=== PATIENT | male | born 1950 | race Caucasian/White ===

== ENCOUNTER 2017-10-06 02:23 | Emergency (ER) | payer OTHER ==
[~2017-10-06] VITALS: Ht 182.9 cm; Wt 102.2 kg
[2017-10-06 02:34] VITALS: BP 152/86; PULSE 78; RESP 20; TEMP 97.7; O2SAT 96
[2017-10-06 04:35] VITALS: BP 154/96; PULSE 75; RESP 18; O2SAT 97
[2017-10-06] MEDS ORDERED: REST30CA PO (05:22)
--- NOTE | 2017-10-06 05:22 | PD ---
HPI Chief Complaint: Respiratory Symptoms Time Seen by Provider: 05:10 Travel History International Travel<30 days: No Contact w/Intl Traveler<30days: No Traveled to known affect area: No History of Present Illness HPI The patient is a 67-year-old male that states for the last 6 months intermittently he has been woken up after he falls asleep. He states he chokes and cannot breathe for a few seconds and then gets anxiety and walks around. He has been on Xanax in the past but does not want to get back on that because she knows that it is addicting. He is followed by the [facility] and would like a sleep study done. This sounds very appropriate. He gave up smoking 7 years ago. [facility] Past Medical History Arthritis: Yes COPD: Yes Patient Takes Glucophage: No Medical other: Yes (Hep-C) Past Surgical History Surgical History: No Previous Surgery Social History Alcohol Use: Yes (2-3 glasses wine) Tobacco Use: No Substance Use: Yes (Occasional marijuana) Allergies-Medications (Allergen,Severity, Reaction): Coded Allergies: No Known Allergies (Unverified , 10/06/17) Review of Systems Except as stated in HPI: all other systems reviewed are Neg Physical Exam Narrative GENERAL: Well-nourished, well-developed patient who appears slightly anxious but is in no apparent distress. SKIN: Focused skin assessment warm/dry. HEAD: Normocephalic. EYES: No scleral icterus. No injection or drainage. NECK: Supple, trachea midline. No JVD or lymphadenopathy. There is no stridor and his voice is normal. CARDIOVASCULAR: Regular rate and rhythm without murmurs, gallops, or rubs. RESPIRATORY: Breath sounds equal bilaterally. No accessory muscle use. Lungs clear to auscultation bilaterally. GASTROINTESTINAL: Abdomen soft, non-tender, nondistended. MUSCULOSKELETAL: No cyanosis, or edema. BACK: Nontender without obvious deformity. No CVA tenderness. ENT: The throat is clear and no obvious tumors are present as far as I can visualize the pharynx. There is no stridor or anywhere along his upper airway. Data Data Last Documented VS Vital Signs Date Time Temp Pulse Resp B/P (MAP) Pulse Ox O2 Delivery O2 Flow Rate FiO2 10/06/17 04:35 18 98 Room Air 10/06/17 04:35 75 154/96 (115) 10/06/17 02:34 97.7 [facility] Medical Decision Making Medical Screen Exam Complete: Yes Emergency Medical Condition: Yes Medical Record Reviewed: Yes ( ) Differential Diagnosis Sleep apnea, anxiety, airway obstruction, airway tumor Narrative Course I cannot find any evidence of any mass in the upper airway causing a physical airway obstruction. He probably wakes up when his glottis relaxes and creates a temporary airway obstruction. He should try sleeping on his stomach or side. I will give him 5 days of Restoril to see if this helps. [facility] Diagnosis Primary Impression: Sleep apnea in adult Additional Instructions: Take the sleeping pill before he go to bed, we are giving her 5 days trial with this. Make sure you do continue to [facility]. Med/Other Pt SpecificInfo: Prescription(s) given Scripts Temazepam (Restoril) 30 Mg Cap 30 MG PO HS Y for INSOMNIA, #5 CAP 0 Refills Prov: Taurus Peña MD 10/06/17 Disposition: 01 DISCHARGE HOME Condition: Stable Taurus Peña MD Oct 06, 2017 05:22
[2017-10-06 05:45] VITALS: BP 146/92
== END 2017-10-06 05:51 | disposition home or self-care (01) ==
LOC: PHED 02:23
DX: G47.30 Sleep apnea, unspecified (principal); J44.9 Chronic obstructive pulmonary disease, unspecified; B19.20 Unspecified viral hepatitis C without hepatic coma
CPT/HCPCS: 99283